=== PATIENT | female | born 1995 | race Caucasian/White ===

== ENCOUNTER → 2016-06-21 | Outpatient (CLI) | payer BC, OTHER ==
[~2016-06-21] MED LIST: PRENTAB26 PO
== END | disposition home or self-care (01) ==
LOC: C.LABSPEC 18:13
PROVIDERS: ATTEND Obstetrics & Gynecology
DX: Z34.03 Encounter for supervision of normal first pregnancy, third trimester (principal)

== ENCOUNTER 2016-07-05 18:21 | Inpatient (IN) | payer OTHER ==
[~2016-07-05] VITALS: Ht 157.5 cm; Wt 83.2 kg
[2016-07-05 18:57] VITALS: Ht 157.5 cm; Wt 83.2 kg
[2016-07-05] MEDS ORDERED: LACTATED RINGER'S 1000ML 1,000 ML IV PRN (19:12)
[2016-07-05] MEDS ORDERED: LACTATED RINGER'S 1000ML 1,000 ML IV SCH (19:12)
[2016-07-05 19:47] LABS: HEMATOCRIT 35.4 % (37-47); MEAN CELL VOLUME 80.8 fL (80-100); MEAN CORPUSCULAR HEMOGLOBIN 27.4 pg (25-34); MEAN CORPUSCULAR HGB CONC 33.9 g/dl (32-36); MEAN PLATELET VOLUME 11.8 fL (7.4-10.4); PLATELET COUNT 198 K/uL (130-400); RED BLOOD COUNT 4.38 M/uL (4.2-5.4)
[2016-07-05 20:10] LABS: ALT/SGPT 18 U/L (12-78); AST/SGOT 19 U/L (15-37); BLOOD UREA NITROGEN 8 mg/dl (7-18); BUN/CREATININE RATIO 14.1 (10-20); CALCIUM 8.8 mg/dl (8.5-10.1); CARBON DIOXIDE 18 mmol/L (21-32); CHLORIDE 109 mmol/L (98-107); CREATININE 0.59 mg/dl (0.60-1.20); GLUCOSE 106 mg/dl (70-99); POTASSIUM 4.1 mmol/L (3.5-5.1); SODIUM 140 mmol/L (136-145)
[2016-07-05 20:13] LABS: ALB/GLOB RATIO 0.7 (0.9-2); ALKALINE PHOSPHATASE 111 U/L (45-117)
[2016-07-06] MEDS ORDERED: LACTATED RINGER'S 1000ML 500 ML IV PRN ×2 (02:44→09:24)
[2016-07-06] MEDS ORDERED: OXYTOCIN 30 UNITS/500ML NSS IV PRN ×2 (02:45→10:30)
[2016-07-06] MEDS ORDERED: BUTORPHANOL TARTRATE 1 MG/ML VIAL IV STA ×3 (02:49→06:57)
[2016-07-06] MEDS ORDERED: EpHEDrine SULFATE INJ 50 MG/ML AMP ONE (08:41)
[2016-07-06] MEDS ORDERED: FENTANYL 2MCG/ML ROPIV 1.25MG/ML 100ML BAG EPI ONE (08:41)
[2016-07-06] MEDS: BUPIVACAINE 0.25% 30 ML VIAL ONE ×2 (09:18→10:29)
[2016-07-06] MEDS: FENTANYL CITRATE INJ 50 MCG/1 ML 2 ML VIAL ONE ×2 (09:18→10:29)
--- NOTE | 2016-07-06 09:22 | Medical Student: [facility] ---
Med Student History & Physical Date of Service Jul 06, 2016. Chief Complaint Check Rupture History of Present Illness Source: clinic records 20 year old , 38 weeks 3 days GA, GALDINO 07/17 by LMP 10/10. Patient was scheduled to come to L&D last night for NST due to elevated blood pressure in clinic yesterday (140/90). Before this scheduled time, she had spontaneous rupture of membranes at 1730 yesterday and came to the hospital. She was started on IV Oxytocin 30 units UD PRN at 0300 today for induction. She has also received IV Stadol I mg x 3 so far today at 0300, 0545, and 0700 for pain. Patient currently feels contractions and movement. Additionally, she is having vaginal bleeding and fluid leaks ever since her spontaneous rupture of membranes. Her course was significant for a vaginal Gardnerella infection in November and a [place]ogram [place] [facility] [place] d/t the inability to visualize the heart on 2 ultrasounds here at [facility]. Additionally, she failed a diabetes screening at her 28 week visit, but subsequent 2 hour glucose tolerance test was WNL. echo at [facility] [place] WNL. PMH is significant for anxiety. Obstetrical history is insignificant. Patient is blood type B +, negative antibody screen, rubella immune, VDRL/RPR nonreactive, negative HbsAg and HIV, negative G & C, negative 2nd trimester screening, and negative GBS culture. OB History N/A [employer]RO[employer] CAR History PA[employer]RO[employer] history is significant for menarche at 11 years old. Menstruation frequency is every 30 days. Past Medical History PMH is significant for anxiety Past Surgical History Past surgical history is significant for a tonsillectomy. Family History Family history is significant for asthma, diabetes mellitus, and HTN in the patient's mother and HTN in the patient's father. Social History Social history significant for being a current smoker. She has been smoking for 2 years and during she smoked 1-2 cigarettes per day. Smoking Status: Current Every Day Smoker Marital Status: single, in relationship Allergies Coded Allergies: Sulfa Antibiotics (Verified Allergy, Unknown, Not sure of reaction, 07/05/16 ) Home Medications Multivit/Min/Iron/Fol Ac/Pren ( Vitamin), 1 TAB PO DAILY Physical Exam cervical exam: 3-4 cm dilated, 100% effaced, -2 station Monitoring External Monitor: Heart Tracing Category 1: HR 120, moderate variability, absent accelerations, and absent variable, late and early decelerations. Tocodynamometer: Contractions every 2.5-3 minutes Laboratory Results 07/05/16 19:34 07/05/16 19:34 Test 07/05/16 19:34 Red Blood Count 4.38 M/uL (4.2-5.4) Mean Corpuscular Volume 80.8 fL (80-100) Mean Corpuscular Hemoglobin 27.4 pg (25-34) Mean Corpuscular Hemoglobin Concent 33.9 g/dl (32-36) RDW Standard Deviation 43.4 fL (36.4-46.3) RDW Coefficient of Variation 14.8 % (11.5-14.5) Mean Platelet Volume 11.8 fL (7.4-10.4) Anion Gap 13.0 mmol/L (3-11) Est Creatinine Clear Calc Drug Dose 153.4 ml/min Estimated GFR () > 150.0 Estimated GFR (Non- 132.9 BUN/Creatinine Ratio 14.1 (10-20) Calcium Level 8.8 mg/dl (8.5-10.1) Total Bilirubin 0.3 mg/dl (0.2-1) Aspartate Amino Transf (AST/SGOT) 19 U/L (15-37) Alanine Aminotransferase (ALT/SGPT) 18 U/L (12-78) Alkaline Phosphatase 111 U/L (45-117) Total Protein 6.4 gm/dl (6.4-8.2) Albumin 2.6 gm/dl (3.4-5.0) Globulin 3.8 gm/dl (2.5-4.0) Albumin/Globulin Ratio 0.7 (0.9-2) Assessment and Plan 40 year old , 38 weeks & 3 days GA, GALDINO 07/17/16 by LMP 10/11/2015. Spontaneous rupture of membranes at 1730 on 07/05/16. Patient is currently in latent stage 1 of labor. heart tracing is Category 1. Patient desires epidural. -continue IV Oxytocin 30 units UD PRN for labor induction -continue EFM, switch to internal monitoring soon to track [place] units -start epidural when requested
[2016-07-06] MEDS ORDERED: ONDANSETRON INJ 2 MG/ML 2 ML VIAL IV PRN (09:30)
[2016-07-06] MEDS ORDERED: DiphenhydrAMINE HCL 50 MG/ML VIAL IV PRN (09:30)
[2016-07-06] MEDS ORDERED: EpHEDrine SULFATE INJ 50 MG/ML AMP IV PRN (09:30)
[2016-07-06] MEDS ORDERED: FENTANYL 2MCG/ML ROPIV 1.25MG/ML 100ML BAG EPI PRN (09:30)
[2016-07-06] MEDS ORDERED: NALBUPHINE HCL INJ 10 MG/ML AMP IV PRN (09:30)
[2016-07-06] MEDS ORDERED: NALOXONE HCL INJ 0.4 MG/1 ML VIAL/CARP IV PRN (09:30)
[2016-07-06] MEDS ORDERED: DIPHTHERIA/TETANUS/PERTUSSIS 0.5 ML SYR/VIAL IM. ONE (10:30)
[2016-07-06] MEDS ORDERED: ACETAMINOPHEN/CODEINE 300/30MG TAB PO PRN (10:30)
[2016-07-06] MEDS ORDERED: SUPERCREAM 0.870 % 15GM JAR EXT PRN (10:30)
[2016-07-06] MEDS ORDERED: ACETAMINOPHEN 325 MG TAB PO PRN (10:30)
[2016-07-06] MEDS ORDERED: LANOLIN OINT EXT PRN ×2 (10:30)
[2016-07-06] MEDS ORDERED: HYDROCORTISONE ACETATE 25 MG SUPP PR PRN (10:30)
[2016-07-06] MEDS ORDERED: BENZOCAINE 20% AER SPR 82.5 GM CAN EXT PRN (10:30)
--- NOTE | 2016-07-06 10:55 | DELIVERY SUMMARY ---
DATE OF OPERATION: 07/06/2016 The patient dilated to complete and pushed to deliver a viable female infant, Apgars 8 and 9 via over a small second degree perineal laceration. Mouth and nose were bulb suctioned at the perineum. Shoulders and body delivered with ease. Infant vigorous and crying at . Cord blood obtained. Laceration repaired in the usual fashion using 3-0 Vicryl. The placenta delivered spontaneously and intact 3-vessel cord. Hemostasis achieved with dilute Pitocin and uterine massage. Bladder drained under sterile conditions for 200 mL of urine. EBL 300 mL. Cervix and sulci intact. Mother and baby stable in recovery. I attest to the content of the Intraoperative Record and any orders documented therein. Any exceptions are noted below. MTDD
[2016-07-06] MEDS ORDERED: OXYTOCIN INJ 20 UNITS in LACTATED RINGER'S 1000ML 1,000 ML IV SCH (11:00)
--- NOTE | 2016-07-06 11:37 | Medical Student: [facility] ---
Medical Student Delivery Note PRE-DELIVERY DIAGNOSIS: 20 year old , 38 weeks and 3 days GA , premature rupture of membranes ( 16.5 hours) and normal labor POST-DELIVERY DIAGNOSIS: same PROCEDURE: Spontaneous vaginal delivery and repair of 2nd degree perineal laceration ESTIMATED BLOOD LOSS: 300 cc FINDING: viable female , apgars 8/9 and weight pending DESCRIPTION OF DELIVERY: Patient was administered epidural and progressed to complete labor. She began to push and spontaneously vaginally delivered a viable female . The was delivered in the right occiput anterior position. After the head was delivered, the mouth and nares were suctioned. No nuchal cord was noted. Next, the anterior shoulder was delivered followed by the posterior shoulder. Then the body was delivered. The baby was warmed and dried and subsequently placed on the mother's chest. The baby immediately cried vigorously. The cord was doubly clamped and cut for cord gas. Cord blood was then collected. Next, the perineum, vagina and cervix were inspected for any tears. A 2nd degree perineal laceration was appreciated. This laceration was then repaired. The patient felt contractions again and then the placenta was delivered spontaneously. The placenta was intact with 2 umbilical arteries, 1 umbilical vein and all cotyledons. The uterus was manually massaged. Sponges, instruments , and needles were counted and correct at the end of the delivery. Hemostasis was achieved and Oxytocin started. (Annie Jarvis) cord gases were not obtained. (Cathy Whitehead M.D.(OPERATIONS SUPERVISOR [employer]ANING/OB))
--- NOTE | 2016-07-06 13:43 | Anesthesia Procedure Note ---
Anesthesia Epidural Removal Nt Date & Time Jul 06, 2016 at 13:43 Vital Signs Pain Intensity: 0.0 Notes Mental Status: alert / awake / arousable, participated in evaluation Nausea / Vomiting: adequately controlled Pain: adequately controlled Airway Patency, RR, SpO2: stable & adequate BP & HR: stable & adequate Hydration State: stable & adequate Neuraxial Anesthesia: was administered, sensory block is resolved Anesthetic Complications: no major complications apparent, pt satisfied with anesthetic care Epidural: removed without complications, with tip intact
[2016-07-06 15:15] VITALS: BP 124/76; PULSE 108; TEMP 36.7
[2016-07-06] MEDS: IBUPROFEN 600 MG TAB PO PRN ×2 (15:20→21:22)
[2016-07-06 19:30] VITALS: BP 126/68; PULSE 102; TEMP 36.9
[2016-07-06] MEDS: DOCUSATE SODIUM 100 MG CAP PO SCH (20:19)
[2016-07-07 00:40] VITALS: BP 115/68; PULSE 86; TEMP 36.7; O2SAT 95
[2016-07-07 04:05] VITALS: BP 127/80; PULSE 95; TEMP 36.5; O2SAT 96
--- NOTE | 2016-07-07 06:36 | Progress Note ---
Subjective Jul 07, 2016. Subjective conversation w/ patient, physical exam Ambulation: limited ambulation Voiding: no voiding problems Passing Gas: Yes Diet Tolerance: Regular Diet Lochia: Moderate Feeding Type: Breast Feeding Pain: 4/10 pain, well controlled with Motrin Review of Systems Constitutional: No chills, No fever Respiratory: No cough, No shortness of breath Cardiac: No chest pain Breast: No breast pain Abdomen: No nausea, No pain, No vomiting Female : No dysuria Objective Vital Signs Date Time Temp Pulse Resp B/P Pulse Ox O2 Delivery O2 Flow Rate FiO2 07/07/16 04:05 36.5 95 16 127/80 96 Room Air 07/07/16 00:40 36.7 86 16 115/68 95 Room Air 07/07/16 00:40 95 Room Air 07/06/16 19:30 36.9 102 126/68 Room Air 07/06/16 19:30 Room Air 07/06/16 15:15 Room Air 07/06/16 15:15 36.7 108 16 124/76 Room Air Physical Exam General Appearance: WELL-APPEARING, WD/WN, NO APPARENT DISTRESS Respiratory/Chest: lungs clear, normal breath sounds Cardiovascular: regular rate, rhythm, no gallop, no murmur Abdomen: non tender, soft Fundus: Firm, Relation to Umbilicus (1cm below umbilicus) Extremities: no calf tenderness Medications Current Inpatient Medications Medications (Trade) Dose Ordered Sig/Dudley Route Start Time Stop Time Status Last Admin Dose Admin Oxytocin (Pitocin IV) 30 units UD PRN IV 07/06/16 10:30 08/05/16 10:29 Benzocaine (Dermoplast Aero Spr) 1 appln PRN PRN EXT 07/06/16 10:30 08/05/16 10:29 07/06/16 20:18 82.5 APPLN Cocaine HCl (Supercream 0.870% Cr) BID PRN EXT 07/06/16 10:30 07/20/16 10:29 Hydrocortisone Acetate (Anusol Hc Supp) 25 mg BID PRN PA 07/06/16 10:30 08/05/16 10:29 Lanolin (Lanolin Oint) PRN PRN EXT 07/06/16 10:30 08/05/16 10:29 Ibuprofen (Motrin Tab) 600 mg Q4H PRN PO 07/06/16 10:30 08/05/16 10:29 07/06/16 21:22 600 MG Acetaminophen (Tylenol Tab) 650 mg Q6H PRN PO 07/06/16 10:30 08/05/16 10:29 Acetaminophen/ Codeine Phosphate (Tylenol w/ Codeine #3 Tab) 1 tab Q4H PRN PO 07/06/16 10:30 08/05/16 10:29 Acetaminophen/ Codeine Phosphate (Tylenol w/ Codeine #3 Tab) 2 tab Q4H PRN PO 07/06/16 10:30 08/05/16 10:29 Docusate Sodium (coLACE CAP) 100 mg BID PO 07/06/16 20:00 08/05/16 19:59 07/06/16 20:19 100 MG Assessment and Plan Post- Day#: 1 Continue Routine Care: -Vital Signs reviewed and WNL (temp max 36.5) - Blood Type: B+, GBS Negative, Rubella Immune - Encourage Ambulation today - Tolerating PO Diet - Pain well controlled with Bety Resident Physician Supervision Note: I was present with Dr. Ponce during the history and exam. I discussed the case with the resident and agree with the findings and plan as documented in the note. Any exceptions or clarifications are listed here: Routine care. Doing well. Breast feeding. Documented By: Cathy Whitehead
[2016-07-07 07:40] VITALS: BP 111/71; PULSE 100; TEMP 36.5
[2016-07-07] MEDS: DOCUSATE SODIUM 100 MG CAP PO SCH ×2 (07:56→20:40)
[2016-07-07] MEDS: IBUPROFEN 600 MG TAB PO PRN ×2 (07:57→15:49)
[2016-07-07 16:05] VITALS: BP 121/61; PULSE 102; TEMP 36.9; O2SAT 97
[2016-07-07] MEDS ORDERED: BISACODYL 5 MG TABEC PO SCH (20:00)
[2016-07-07] MEDS ORDERED: DOCUSATE SODIUM 100 MG CAP PO SCH (20:00)
[2016-07-07 23:30] VITALS: BP 122/75; PULSE 92; TEMP 36.8; O2SAT 95
[2016-07-08] MEDS: IBUPROFEN 600 MG TAB PO PRN ×2 (00:23→09:18)
[2016-07-08] MEDS: ACETAMINOPHEN/CODEINE 300/30MG TAB PO PRN ×2 (00:23→09:17)
--- NOTE | 2016-07-08 06:55 | Progress Note ---
Subjective Jul 08, 2016. Subjective conversation w/ patient, physical exam Ambulation: ambulating normally, limited ambulation Voiding: no voiding problems Feeding Type: Breast Feeding Objective Vital Signs Date Time Temp Pulse Resp B/P Pulse Ox O2 Delivery O2 Flow Rate FiO2 07/07/16 23:30 95 Room Air 07/07/16 23:30 36.8 92 16 122/75 95 Room Air 07/07/16 16:05 97 Room Air 07/07/16 16:05 36.9 102 16 121/61 97 Room Air 07/07/16 07:40 36.5 100 16 111/71 Room Air 07/07/16 07:40 Room Air Physical Exam General Appearance: WELL-APPEARING, NO APPARENT DISTRESS Fundus: Firm, Non-Tender Extremities: no calf tenderness Assessment and Plan Post- Day#: 2 Continue Routine Care: - doing well - desires d/c - instructions given - f/u in 6 weeks
--- NOTE | 2016-07-08 06:56 | Discharge Instructions ---
Discharge Instructions Admission Reason for Admission: Check Rupture Discharge Discharge Diagnosis / Problem: same Discharge Goals Goal(s): Routine recovery after delivery Medications Continue Dispensed Medications: supercream, dermaplast Activity Recommendations Activity Limitations: as noted below . Instructions / Follow-Up Instructions / Follow-Up ACTIVITY RECOMMENDATIONS: * Gradual return to full activity over the next 2-3 weeks. * No lifting - nothing heavier than baby over the next 2-3 weeks. * Do not engage in vigorous exercise, sexual activity or sports until cleared by your physician. * Do not drive or operate any motorized equipment until cleared by your physician. * You may shower/bathe daily. MEDICATIONS: For discomfort or pain, you may use Acetaminophen (Tylenol), Ibuprofen (Advil), or Naproxen (Aleve) following the package directions. For constipation you may use Colace following the package directions. BREAST CARE: If you are not breast feeding: * Wear a supportive bra 24 hours a day for one to two weeks. * Avoid stimulating your breasts and nipples as much as possible during the first few weeks after delivery. * When taking a shower, have the warm water hit your back, not breasts. * When your breasts feel full, apply ice packs. Usually three to four times a day helps ease the discomfort. * Take a mild pain medication (Tylenol / Motrin) when you are uncomfortable. If breast feeding: * Use breast milk to lubricate nipples. Lansinoh cream may be used for sore nipples. You do not need to remove cream prior to breast feeding. If using a different brand of cream, check the label for directions regarding removal of cream prior to nursing. * Wear a supportive bra. * If having problems with breasts or breast feeding, call a creative consultant or your health care provider. EPISIOTOMY CARE: After delivery, if you have an episiotomy (stitches), the following steps will ease discomfort and aid healing. * For the first 24 hours after delivery, place ice packs next to your episiotomy to help reduce swelling. * After the first 24 hour-period, sitz baths, either portable or in the tub, are suggested. A shower with a shower arm sprayed over the episiotomy may be comforting. * Rohini care should be done after each voiding and bowel movement. Squirt warm water from a plastic bottle over the perineum (region of the body between the anus and urinary opening) and pat dry. * Use Dermoplast to ease discomfort. Shake container. [place] directly over the episiotomy. Place a Tucks on a clean sanitary pad next to your episiotomy. SPECIAL CARE INSTRUCTIONS: When you are discharged from the hospital, it is important for you to follow the instructions listed below: * During the first week at home, you should be able to care for yourself and your baby. In addition, the usual light household activities are encouraged. * Limit your activities to the way you feel. Do not try to clean the house or move furniture. Be sensible. * If you actively engage in sports and have done so up until the time of your delivery, you may resume these activities as soon as you feel able. This may take up to one month or even longer. Use good judgment. * Continue to take your vitamins for at least six weeks after the of your baby. * Your diet need not be limited unless you were on a special diet before your delivery. Breast-feeding mothers need around 2500 calories per day and at least 64-80 ounces of fluid per day (8 to 10 glasses). * You should eat foods from the four major food groups. Crash diets or fad diets are to be avoided. Eating lean meats, fresh fruits and vegetables, low-fat dairy products, high fiber foods and a regular exercise program, will help you get back to your pre- weight without putting your health at risk. * Constipation is sometimes a problem after delivery. Take a mild laxative as needed. If breast feeding, Milk of Magnesia is acceptable to use. You may use a suppository or Fleets enema if no episiotomy. * A daily shower or tub bath is suggested. Be sure to thoroughly and gently dry the perineum. * A bloody vaginal discharge will usually continue until around four weeks post . A small amount of bleeding may continue for as long as six weeks. Vaginal discharge changes from the bright red bleeding after delivery to pink then brownish and finally yellowish-pink before becoming white and disappearing. * Bleeding may increase with activity. Your first period may come in 4-8 weeks. If you are breast feeding, your period may be delayed even longer. * [place] (sex) can begin whenever both you and your partner feel comfortable and do not have any form of genital infection. It is recommended that you wait at least six weeks for internal and external healing to occur. If you have questions, please talk to your health care practitioner. A condom should be used to prevent infection and . * Foreplay, gentle intercourse and lubrication is very important the first several times to prevent pain. A water-based lubricant such as K-Y jelly or Astroglide may be used. * If you have RH negative blood and your baby is RH positive, you will receive RHOGAM by injection prior to discharge. The nurse will give you a card to keep with you that has the date and place that you received RHOGAM after delivery. * During your care, you had a Rubella screen done to check for the presence of rubella antibodies in your blood. If your test was negative, you will receive a Rubella vaccine prior to discharge. This vaccine may cause a fever, soreness at the injection site and flu-like symptoms. If these symptoms persist, notify your health care practitioner. is not advised for one month after a Rubella vaccine. * Verbalizes understanding of car seat law as reviewed with patient nursing. * Car Seat hand-out given and reviewed with patient by nursing. * Shaken baby information reviewed with patient by nursing. Call you doctor if: * Heavy bleeding (saturating several pads an hour) or passing clots the size of your fist. * A fever >101 degrees F (38.3 degrees C) on two occasions four hours apart and /or chills. * Unusual pain in the pelvic or vaginal areas. * "Baby Blues" lasting longer than two weeks. If you have any questions or concerns, call your health care practitioner at . FOLLOW UP VISIT: * Please call the office at to schedule a 6 week examination. It is important you keep this appointment. It is important for you to make arrangements for either yearly or twice yearly check-ups thereafter. Current Hospital Diet Patient's current hospital diet: Regular OB Diet Discharge Diet Recommended Diet: Regular Diet Procedures Procedures Performed: Vaginal Delivery Pending Studies Studies pending at discharge: no Medical Emergencies . Who to Call and When: Medical Emergencies: If at any time you feel your situation is an emergency, please call 911 immediately. . Non-Emergent Contact Non-Emergency issues call your: Statement Clerks Supervisor Call Non-Emergent contact if: you have a fever, temperature is above 100.5 . . "Provider Documentation" section prepared by Sami Del Valle. VTE Core Measure Inpt VTE Proph given/why not?: Treatment not indicated
[2016-07-08 08:00] VITALS: BP 117/73; PULSE 87; TEMP 36.8
[2016-07-08] MEDS: DOCUSATE SODIUM 100 MG CAP PO SCH (09:17)
[2016-07-08 11:18] VITALS: BP_DIAS 73; PULSE 87; TEMP 36.8
[2016-07-08] MEDS ORDERED: BISACODYL 5 MG TABEC PO SCH (20:00)
== END 2016-07-08 11:45 | disposition home or self-care (01) | DRG 775 ==
LOC: C.OPB 18:21 → C.LD 18:21 → C.OPB 19:14 → C.OBG 07-06 14:02
PROVIDERS: ADMIT Obstetrics & Gynecology; ATTEND Obstetrics & Gynecology
PROC: 10E0XZZ Delivery of Products of Conception, External Approach (ICD-10-PCS; principal; 2016-07-06)
PROC: 0KQM0ZZ Repair Perineum Muscle, Open Approach (ICD-10-PCS; 2016-07-06)
DX: O70.1 Second degree perineal laceration during delivery (principal); Z37.0 Single live birth; Z3A.38 38 weeks gestation of pregnancy

== ENCOUNTER → 2016-07-05 | Outpatient (CLI) | payer OTHER ==
[2016-07-05 13:04] LABS: HEMATOCRIT 36.2 % (37-47); MEAN CELL VOLUME 80.1 fL (80-100); MEAN CORPUSCULAR HEMOGLOBIN 27.2 pg (25-34); MEAN PLATELET VOLUME 12.1 fL (7.4-10.4); PLATELET COUNT 197 K/uL (130-400); RED BLOOD COUNT 4.52 M/uL (4.2-5.4); WHITE BLOOD COUNT 9.91 K/uL (4.8-10.8)
[2016-07-05 13:13] LABS: ALT/SGPT 17 U/L (12-78); BLOOD UREA NITROGEN 9 mg/dl (7-18); BUN/CREATININE RATIO 14.5 (10-20); CALCIUM 8.3 mg/dl (8.5-10.1); CARBON DIOXIDE 20 mmol/L (21-32); CHLORIDE 109 mmol/L (98-107); GLUCOSE 101 mg/dl (70-99); POTASSIUM 4.1 mmol/L (3.5-5.1); SODIUM 140 mmol/L (136-145)
[2016-07-05 13:16] LABS: ALB/GLOB RATIO 0.6 (0.9-2); ALKALINE PHOSPHATASE 115 U/L (45-117); AST/SGOT 16 U/L (15-37)
== END | disposition home or self-care (01) ==
LOC: C.LAB1850 11:48
PROVIDERS: ATTEND Obstetrics & Gynecology
DX: O13.9 Gestational [pregnancy-induced] hypertension without significant proteinuria, unspecified trimester (principal)